=== PATIENT | female | born 1955 | race Caucasian/White ===

== ENCOUNTER → 2016-09-30 | Day surgery (SDC) | payer MEDICARE ==
[~2016-09-30] MED LIST: ALBU17I INH; APREPITANT 40 MG CAP ONE; BETH25TA PO; BUPIVACAINE/EPINEPHRINE 0.5% PF 10 ML VIAL ONE; BUPR-175 PO; DIAZ5 PO; DOCU100T9 PO; EPIP0.3I IM; HYDROmorphone HCL PF 2 MG/ML VIAL ONE; LACTATED RINGER'S 1000 ML INJ 1,000 ML ONE; LIDOCAINE 1%/EPINEPHrine 1:100,000 SOLN 20 ML VIAL ONE; MIDAZOLAM HCL 2 MG/2 ML VIAL ONE; MIRA33502 PO; ONDANSETRON HCL 4 MG/2 ML VIAL IV PUSH ONE; OXYC5 PO; PROPOFOL 200 MG/20 ML AMP IV ONE; PROT40TA PO; QUET1TAB67 PO; SENN8.8S7 OR; SIMV10TA OR; SUCR1TAB PO; TEMA30CA PO; TIOT18I; [UNRECOGNIZED DRUG - CODE] OR; ceFAZolin INJ 1,000 MG VIAL ONE
--- NOTE | 2016-10-01 06:20 | MP ---
cc: LONG AMES DATE OF SURGERY September 30, 2016. PREOPERATIVE DIAGNOSIS Left elbow cubital tunnel syndrome. POSTOPERATIVE DIAGNOSIS Left elbow cubital tunnel syndrome. SURGEON Long Ames MD [employer] JUDY King The surgical procedure was assisted by my Advanced Registered Nurse Practitioner. My TAMALE MAKER's presence was necessary throughout this case for the manipulation and positioning of the surgical extremity. My TAMALE MAKER was assisting me throughout the duration of this procedure. The skill set of an Advanced Registered Nurse Practitioner was medically necessary to complete this procedure. During the surgical case, the pathology lab technician was working at the back table and the Advanced Registered Nurse Practitioner was directly assisting me. PROCEDURE Left elbow ulnar nerve transposition. ESTIMATED BLOOD LOSS Minimal. ANESTHESIA General anesthesia. TOURNIQUET TIME 20 minutes at 250 mmHg pressure. PROCEDURE The patient was brought back to the operative theater. General anesthesia was administered. She received intravenous Ancef. The left upper extremity was prepped and draped in the usual sterile fashion. We infiltrated the skin with a combination of 1% lidocaine and 0.25% Marcaine. The arm was exsanguinated. The tourniquet was raised. Standard medial curvilinear incision was made over the medial epicondyle. We dissected through the subcutaneous fat to the underlying fascia. We identified the ulnar nerve at the turning point around the medial epicondyle. There was quite a bit of adhesions noted around the nerve. We started with dissection of the nerve at this point and then followed it up proximally, releasing the nerve and the underlying vein, placed a vein retractor under the nerve to gently protect it and elevate it. We followed the nerve then down distally, past the medial epicondyle into the flexor musculature. We did release one of the branches going into the flexor musculature to allow for a complete transposition with no undue tension. We also released small capsular branches. The nerve was in continuity during the entire time and was very well protected. We then resected a portion of the intermuscular septum proximally to reduce any undue tension anteriorly. We elevated a very nice fat service line layer of the common flexor wad. We also made sure there was no excessive impingement areas along the tendon of the common flexor tendon. We transposed the nerve anteriorly. We released the tourniquet and hemostasis was achieved. The wound was irrigated and then we repaired a fat layer down to the medial epicondyle using two individual 2-0 Vicryl sutures which now created a tunnel for the nerve to sit in anteriorly and will also help reduce the chance of the nerve subluxing back posteriorly. We put the elbow through a range of motion. We found that there was no undue tension of the nerve in any position of the elbow and the nerve had very nice stability as well. We closed the skin with 2-0 Vicryl, followed by 3-0 nylon. The patient's arm was dressed which was placed in a posterior splint. Postoperative plan is only for temporary splinting to allow for initial healing and then starting early range of motion. MD GISSELLE Owens/SEE /1:01 PM /6:16 AM
== END | disposition home or self-care (01) ==
LOC: ESDC 10:24
PROVIDERS: ATTEND Orthopaedic Surgery
DX: G56.22 Lesion of ulnar nerve, left upper limb (principal)
CPT/HCPCS: 01710; 64718; J0690; J1170; J2250; J2405; J7120; J8501

== ENCOUNTER 2017-11-17 09:50 | Observation (INO) ==
[2017-11-17] MEDS ORDERED: Metoprolol Tartrate 25 MG Tablet PO SCH (10:30)
[2017-11-17] MEDS ORDERED: Chlorhexidine 4% Topical 120 APPLIC/120 ML Bottle TOPICAL SCH (10:30)
[2017-11-17] MEDS ORDERED: Chlorhexidine Gluconate 2% 1 Pack (2 Cloths) TOPICAL SCH (10:30)
[2017-11-17] MEDS ORDERED: HYDROmorphone PF Inj 2 MG/ML Vial ONE ×2 (10:55→17:22)
[2017-11-17] MEDS ORDERED: Propofol Inj 500 MG/50 ML Vial ONE ×2 (10:56→10:57)
[2017-11-17] MEDS ORDERED: Sodium Chlor 0.9% Inj 500 ML IV.SIG SCH (11:00)
[2017-11-17] MEDS ORDERED: ceFAZolin Inj 2,000 MG in Sodium Chlor 0.9% Inj 100 ML IV.SIG SCH (11:00)
[2017-11-17] MEDS ORDERED: ceFAZolin 2 GM Premix Inj 2 GM/50 ML PIGGYBACK IV.SIG ONE (11:55)
[2017-11-17] MEDS ORDERED: Lidocaine PF 1% Inj 5 ML Syringe INFILTRATN ONE (12:00)
[2017-11-17] MEDS ORDERED: Succinylcholine Inj 100 MG/5 ML Syringe IV.PUSH ONE (12:00)
[2017-11-17] MEDS ORDERED: Dexmedetomidine Inj 200 MCG/2 ML Vial ONE (12:25)
--- NOTE | 2017-11-17 16:44 | XR ---
EXAM DATE: 11/17/2017 4:41 PM EDT AGE/SEX: 62 years / Female INDICATIONS: C5-C6 fusion. CLINICAL DATA: This is the patient's initial encounter. Patient reports that signs and symptoms have been present for 1 day and indicates a pain score of Nonresponsive. MEDICAL/SURGICAL HISTORY: Non-responsive. Non-responsive. COMPARISON: No prior exams available for comparison. FINDINGS: 2 spot intraoperative fluoroscopic views of the cervical spine demonstrate anterior cervical discecto my and intervertebral fusion hardware placement at C5-6. CONCLUSION: Postsurgical changes. Electronically signed by: Kelechi Pillai MD 11/17/2017 4:43 PM EDT
[2017-11-17] MEDS ORDERED: Post-op Orders (for Pharmacy) OTHER STA (16:50)
[2017-11-17] MEDS ORDERED: oxyCODONE/Acetaminophen 10/325 Tablet PO PRN (16:50)
[2017-11-17] MEDS ORDERED: Bisacodyl 10 MG Supp RECTAL PRN (16:50)
[2017-11-17] MEDS ORDERED: Naloxone Inj 0.4 MG/ML Vial ONE (16:55)
--- NOTE | 2017-11-17 16:56 | P.BOP ---
Date of procedure: 11/17/17 Procedure: C5-C6 ACDF Removal of hardware Anterior iliac crest autograft Implants: Depuy Anesthesia: GETA Surgeon: Yuliya Levin MD Estimated blood loss (mL): 25 Pathology: none sent Condition: stable Disposition: PACU
[2017-11-17] MEDS ORDERED: fentaNYL Citrate Inj 100 MCG/2 ML Ampul ONE (17:16)
[2017-11-17] MEDS ORDERED: clonazePAM 1 MG Tablet PO SCH (21:00)
[2017-11-17] MEDS ORDERED: QUEtiapine 25 MG Tablet PO SCH (21:00)
[2017-11-17] MEDS ORDERED: Senna/Docusate Sodium 8.6/50 MG Tablet PO SCH (21:00)
[2017-11-17] MEDS ORDERED: Dexamethasone Inj 20 MG/5 ML Vial IV.PUSH ONE (22:00)
[2017-11-17] MEDS: oxyCODONE/Acetaminophen 10/325 Tablet PO PRN (22:11)
[2017-11-17] MEDS: Multivitamin/Minerals Therapeutic Tablet PO SCH (22:12)
[2017-11-17] MEDS: Polyethylene Glycol 3350 17 GM Packet PO SCH (22:16)
[2017-11-17 22:55] VITALS: RESP 18
[2017-11-18] MEDS: HYDROmorphone PF Inj 2 MG/ML Vial IV.PUSH PRN ×2 (00:15→03:59)
[2017-11-18] MEDS: oxyCODONE/Acetaminophen 10/325 Tablet PO PRN ×2 (02:08→08:36)
[2017-11-18] MEDS ORDERED: Temazepam 15 MG Capsule PO SCH (03:45)
[2017-11-18] MEDS ORDERED: Levothyroxine 75 MCG Tablet PO SCH (06:00)
--- NOTE | 2017-11-18 07:24 | P.PNOP ---
Subjective Interval history: Patient resting comfortably at present. C/o posterior scapular/shoulder pain overnight. Improved N/T RUE. Mild dysphagia but swallowing liquids without significant difficulty Physical Exam Vital signs: Vital Signs 11/17/17 10:34 11/17/17 17:06 11/17/17 17:15 Temperature 98.0 F 98.0 F Pulse Rate 71 86 94 H Respiratory Rate 20 14 16 Blood Pressure 135/78 104/59 L 115/57 L Pulse Oximetry 100 100 11/17/17 17:30 11/17/17 17:45 11/17/17 18:00 Temperature Pulse Rate 99 H 96 H 94 H Respiratory Rate 17 17 12 Blood Pressure 117/55 L 118/55 L 117/56 L Pulse Oximetry 100 99 99 11/17/17 18:30 11/17/17 19:00 11/17/17 19:30 Temperature 98 F Pulse Rate 86 79 Respiratory Rate 17 14 18 Blood Pressure 114/59 L 106/56 L Pulse Oximetry 98 98 11/17/17 20:00 11/17/17 22:55 11/18/17 00:00 Temperature 97.2 F L 97.4 F L Pulse Rate 89 77 Respiratory Rate 20 18 20 Blood Pressure 116/66 137/66 Pulse Oximetry 97 96 11/18/17 00:45 11/18/17 02:38 11/18/17 04:00 Temperature 98.1 F Pulse Rate 80 Respiratory Rate 18 18 20 Blood Pressure 130/70 Pulse Oximetry 96 11/18/17 04:29 Temperature Pulse Rate Respiratory Rate 18 Blood Pressure Pulse Oximetry Intake & Output 11/17/17 11/18/17 11/18/17 18:59 06:59 18:59 Intake Total 3250 / 3250 650 / 650 Output Total 300 / 300 Balance 2950 / 2950 650 / 650 Weight 63.8 kg 63.8 kg Intake: IV 1050 / 1050 200 / 200 LR 1000 mL Inj 1,000 ML @ 30 1000 / 1000 mls/hr IV.SIG .Q24H BRANDON Rx#: [id number] Ancef 2 GM Premix Inj 2 gm In 50 / 50 50 ml @ 0 mls/hr IV.SIG .STK- MED ONE Rx#:[id number] Ancef Inj 1,000 MG In NS Inj 200 / 200 100 ML @ 200 mls/hr IV.SIG Q6H BRANDON Rx#:[id number] Oral 450 / 450 Anesthesia Amount 2200 / 2200 Output: Estimated Blood Loss 25 / 25 Urine Amount (Catheter) 275 / 275 Indwelling Urethral Catheter 275 / 275 Other: # Voids 3 Date of Last Bowel Movement 11/17/17 Weight On Admission 63.8 kg Narrative: Awake, alert, NAD Collar in place Dressing and johnathan removed. No significant swelling or hematoma. BUE: grossly intact throughout without gross evidence of weakness. N/T only over thumb, significantly improved from preop. BCR - Urinary Catheter Management Indwelling Urethral Catheter Cath placed during this visit: yes, but has since been removed by the nurse Reason for continuing: Hourly intake/output Insertion date: 11/17/17 Insertion time: 12:00 Removal date: 11/17/17 Removal time: 16:49 Results - Imaging Impressions Cervical Spine X-Ray 11/17/17 00:00 CONCLUSION: Postsurgical changes. Assessment and Plan - Assessment and Plan 62yo F POD#1 s/p C5-C6 ACDF 1. Collar at all times 2. Dressing to be changed as needed. Dressing was changed at bedside this morning. Dressing may remain in place as long as it remains dry. 3. Pain control by pain mgmt as outpatient. Rx at home from her pain physician. No new Rx for pain. Will give muscle relaxer 4. Discharge home today
[2017-11-18] MEDS: Polyethylene Glycol 3350 17 GM Packet PO SCH (08:35)
[2017-11-18] MEDS: Multivitamin/Minerals Therapeutic Tablet PO SCH (08:37)
[2017-11-18 08:51] VITALS: BP 136/70; PULSE 81; TEMP 97.7; O2SAT 94
--- NOTE | 2017-11-30 07:40 | P.OP ---
Date of procedure: 11/17/17 Procedure: 1. Anterior cervical decompression via discectomy and osteophytectomy, C5-6 2. Anterior cervical arthrodesis C5-C6 with interbody cage 3. Iliac crest autograft 4. Placement of allograft 5. Removal of hardware, C6-C7 6. Placement anterior cervical plate and screws, C5 and C6 Implants: Depuy Zero-PVA Depuy [place] anterior cervical plate and screws Anesthesia: GETA Surgeon: Yuliya Levin MD Estimated blood loss (mL): 25 Pathology: none sent Operation and Findings: Indications for procedure: Patient is a 62 year old female who presented to my office suffering from signs and symptoms consistent with severe cervical radiculopathy with large right-sided disc herniation at C5-6. Patient previously underwent C6-C7 ACDF. Recommendation for ACDF C5-6 with autograft and allograft placement. Risks, possible benefits and alternative treatment options were discussed with the patient. At this time she did wish to proceed with the above mentioned procedure. Description of procedure: The patient was brought back to the operating room and placed supine on the operating room table with all bony prominences well- padded. General anesthesia then ensued. A urinary catheter along with neuro monitoring leads were placed. Patient's arms were then taped distally to allow for appropriate imaging. Patient was prepped and draped in standard sterile fashion. Preoperative antibiotics were given within 1 hour of incision. A timeout was performed to identify the correct patient, side, site and procedure to be performed. Fluoroscopy was used to localize the site for incision. An small transverse incision was made in the upper skin crease on the right side. A standard Fierro-Price approach was performed with dissection carried out medial to the SCM and medial to the carotid sheath. Blunt finger sweep was utilized for palpation down to the anterior aspect of the spine. An appendiceal retractor was placed. At this time, there were scar tissue noted over the plate and prevertebral fascia at the C5-6 level. This scar tissue was carefully mobilized medially to allow appropriate retraction. The C5-6 disc space was identified on fluoroscopy and verified. Appropriate position just above the previous C6-7 plate. The longus coli was then mobilized off the C5 vertebral body. A self-retaining retractor was then placed. [place] pins were then placed into the C5 and C6 vertebral body. Distraction was then carried out. A discectomy was performed with the use of pituitary rongeurs, curettes and a high-speed bur. Backside decompression was performed with high-speed bur such that the medial aspect of the uncinate and all osteophytic material removed. The PLL was then removed with the use of curettes and Kerrisons. The underlying dura was found to be free of any compression. Decompression was carried out laterally towards bilateral foramen to ensure bilateral nerve roots were free of compression, with particular attention paid to the right side given the disc herniation and radiculopathy. At this time, having been satisfied with the decompression, hemostasis was achieved along with copious irrigation. The interbody cage was then sized. I then turned my attention to obtaining iliac crest autograft. The patient had been previously prepped and draped around this area. A small incision was made approximately 2 cm posterior to the ASIS. A [employer] bone harvester was then placed into the iliac crest and advanced into the cancellus bone. This was then advanced into cancellous bone. Several passes were made into the iliac crest in different directions to obtain cancellus bone cores to use as autograft in the cage. This autograft was morselized and placed into the cage. In addition, allograft was placed into the cage to supplement the autograft. The stand-alone device was then impacted into the disc space and distraction was let down. This was found to be highly stable. The cage was verified to be in appropriate positions on C-arm imaging. Neuro monitoring was without any adverse signal changes. At this time a screw was placed into the C5 vertebral body and the C6 vertebral body. The cephalad screw obtaining solid purchase, however at the C6 caudal screw obtaining purchase and appeared to be skiving off of previous hardware. The screws were locked down and final tightened. At this time, I was not satisfied with the fixation and therefore more dissection was carried out to the C6-7 level and scar tissue elevated to allow removal of the previous C6-7 plate. The previous C6-C7 plate was then removed. A small anterior cervical plate was then affixed over the C5-6 level and 2 screws placed in the C5 vertebral body and 2 into the C6 vertebral body. The screws all obtained a solid purchase. Radiographs showed the hardware was in good position on AP and lateral imaging with good christianity of disc height and cervical lordosis. Copious irrigation was performed. A quarter-inch [place] drain was then placed through the incision deep. The platysmal layer was reapproximated with running Vicryl sutures and the subcutaneous tissue was closed with interrupted Vicryl sutures. A subcuticular Monocryl suture was then utilized to close the skin along with Mastisol and Steri-Strips. Sterile dressings were applied and a C collar was placed. Patient was awoken from general anesthesia without complication. It should be noted that the patient remained hemodynamically stable throughout the entire procedure without any neuro monitoring adverse signal changes.
== END 2017-11-18 12:07 | disposition home or self-care (01) ==
LOC: HSDI 09:50 → HSDC 09:50 → N06 19:34
PROVIDERS: ADMIT Orthopaedic Surgery Orthopaedic Surgery of the Spine; ATTEND Orthopaedic Surgery Orthopaedic Surgery of the Spine